=== PATIENT | female | born 1945 | race Caucasian/White ===

== ENCOUNTER → 2021-01-27 10:18 | Outpatient (BNVA) | payer MEDICARE, OTHER, SELFPAY | PROVIDERS: Family Provider Nurse Practitioner Family; PCP Nurse Practitioner Family; Visit Provider Nurse Practitioner Family | DX: R53.83 Other fatigue (principal); K21.9 Gastro-esophageal reflux disease without esophagitis; R53.82 Chronic fatigue, unspecified | CPT/HCPCS: 84443 ==

== ENCOUNTER → 2021-09-14 10:05 | Outpatient (BNVA) | payer MEDICARE, OTHER, SELFPAY | PROVIDERS: Family Provider Nurse Practitioner Family; PCP Nurse Practitioner Family; Visit Provider Nurse Practitioner Family | DX: Z00.00 Encounter for general adult medical examination without abnormal findings (principal); E78.5 Hyperlipidemia, unspecified | CPT/HCPCS: 80053; 80061; 85025 ==

== ENCOUNTER → 2021-12-16 09:48 | Outpatient (BNVA) | payer MEDICARE, OTHER, SELFPAY | PROVIDERS: Family Provider Nurse Practitioner Family; PCP Nurse Practitioner Family; Visit Provider Nurse Practitioner Family | DX: I10 Essential (primary) hypertension (principal); E78.5 Hyperlipidemia, unspecified; L81.9 Disorder of pigmentation, unspecified | CPT/HCPCS: 80048; 80061 ==

== ENCOUNTER 2023-03-18 12:07 | Emergency (ER) | payer MEDICARE, SELFPAY ==
[2023-03-18 12:10] VITALS: BP 156/55; PULSE 85; RESP 14; O2SAT 99
--- NOTE | 2023-03-18 12:29 | XRR_ITS ---
PROCEDURE INFORMATION: Exam: XR Chest Exam date and time: 03/18/2023 12:40 PM Age: 77 years old Clinical indication: Pain; Chest pressure; Additional info: Chest pain TECHNIQUE: Imaging protocol: Radiologic exam of the chest. Views: 1 view. COMPARISON: No relevant prior studies available. FINDINGS: Lungs: Unremarkable. No consolidation. Pleural spaces: Unremarkable. No pleural effusion. No pneumothorax. Heart/Mediastinum: Unremarkable. No cardiomegaly. Bones/joints: Unremarkable. XR/XR chest 1V portable [id number] IMPRESSION: No acute findings.
--- NOTE | 2023-03-18 12:29 | ECG_ITS ---
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 Measurements Intervals [place] Rate: 79 P: 64 TX: 162 QRS: 38 QRSD: 92 T: 52 QT: 366 QTc: 422 Interpretive Statements SINUS RHYTHM No previous ECG available for comparison Electronically Signed On 03-18-2023 13:09:59 CDT by Fern Milian M.D. [id number]
--- NOTE | 2023-03-18 12:30 | W.ED.CHESTPA ---
HPI - Chest Pain General: Chief Complaint: Chest Pain Stated Complaint: CHEST PAIN Time Seen by Provider: 03/18/23 12:10 Source: patient Mode of arrival: EMS History of Present Illness: 77-year-old female presents emergency room with complaint of chest pain. 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 Complains of pain, epigastric area radiating up into the stomach she did get diaphoretic and somewhat short of breath with that her most of her symptoms have resolved by the time she arrived here she was given aspirin 324 mg in route. She has no known history of coronary artery disease hypertension or hyperlipidemia. No previous cardiac evaluations no prior episodes of chest discomfort. Patient had nausea associated with this and a single episode of diarrhea. She is non-smoker nondrinker and no history of diabetes mellitus does have some mild hypertension for which she takes lisinopril MD complaint: chest pain Onset (ago): hour(s) Timing of current episode: episodic Prior episodes: No Onset: during rest Pain location: substernal Quality: tightness and aching Relieving factors: nothing Exacerbating factors: nothing Associated symptoms: Reports dyspnea; Deny abdominal pain, fever(s) or palpitations Review of Systems Const: Denies: fever(s) or chills Card: Reports: chest pain; Denies: palpitations, irregular heart rhythm or edema Resp: Reports: dyspnea GI: Denies: abdominal pain : Denies: dysuria, urinary frequency or urinary urgency Musc: Denies: neck pain or back pain Skin/Breast: Denies: rash PFSH ED PFSH: Medical History Hyperlipidemia Hypertension Family History Father CAD (coronary artery disease) Hypertension Mother Hyperlipidemia Denies family history of Diabetes Chronic kidney disease (CKD) Cancer Social History Smoking and tobacco/nicotine status: never used tobacco/nicotine Second hand smoke exposure: No Alcohol intake: never Substance/Drug Use: never Adopted: No Household members: spouse Housing: House Marital status: service: Yes branch: [place] branch details: [place] Physical Exam Const: COMMON NORMALS: no acute distress GENERAL APPEARANCE: cooperative and comfortable ORIENTATION/CONSCIOUSNESS: Yes awake, Yes oriented to person, Yes oriented to place and Yes oriented to time HENMT: COMMON NORMALS: normocephalic, atraumatic and hearing grossly normal bilaterally HEAD & SCALP: normocephalic and atraumatic Resp: COMMON NORMALS: normal respiratory effort, No retractions, No use of accessory muscles and clear to auscultation bilaterally AUSCULTATION: clear to auscultation bilaterally Cardio: COMMON NORMALS: regular rate, regular rhythm and No murmurs present (Cardio) RATE: regular rate RHYTHM: regular rhythm GI: COMMON NORMALS: Soft to palpation and No hepatosplenomegaly present AUSCULTATION: Yes normoactive bowel sounds PALPATION: Yes Soft to palpation, No Tenderness to palpation present (GI), No Guarding due to palpation present (GI) and Yes No hepatosplenomegaly present Extremity: COMMON NORMALS: normal to inspection, capillary refill normal, no clubbing, cyanosis or edema, no calf tenderness and no pedal edema Neuro: SENSORIUM/ORIENTATION: Yes oriented to person, Yes oriented to place and Yes oriented to time Skin: COMMON NORMALS: no rashes or lesions noted GENERAL SKIN EXAM: no rashes or lesions noted Course Vital Signs: Vital signs: Vital Signs Pulse Rate 85 03/18/23 12:10 Respiratory Rate 14 03/18/23 12:10 Blood Pressure 156/55 03/18/23 12:10 Pulse Oximetry 98 03/18/23 13:17 Oxygen Delivery Me thod Room Air 03/18/23 13:17 MDM - Chest Pain Medical Decision Making Cardiac enzymes EKG unremarkable. No further symptoms patient preferred to go home started on Isorbid mononitrate of lower blood pressure and protect her heart also start baby aspirin and set up for outpatient Lexiscan sestamibi stress test. Avoid exertional activities return if has further problems. Medical Records I reviewed the patient's medical records. Lab Data I reviewed the patient's lab results. 03/18/23 12:24 03/18/23 12:24 Radiology Impressions Chest X-Ray 03/18/23 12:29 IMPRESSION: No acute findings. Laboratory Results WBC 13.29 10^3/uL (3.29-11.43) H 03/18/23 12:24 RBC 5.00 10^6/uL (3.85-5.65) 03/18/23 12:24 Hgb 14.30 g/dL (11.27-16.99) 03/18/23 12:24 Hct 44.6 % (36-47) 03/18/23 12:24 MCV 89.2 fl (85-98) 03/18/23 12:24 MCH 28.6 pg (27-33) 03/18/23 12:24 MCHC 32.1 g/dL (30-55) 03/18/23 12:24 RDW 13.2 % (12.1-15.1) 03/18/23 12:24 Plt Count 343 10^3/cmm (157-399) 03/18/23 12:24 MPV 9.1 fL (7.4-10.4) 03/18/23 12:24 Neut % (Auto) 92.3 % 03/18/23 12:24 Lymph % (Auto) 3.8 % 03/18/23 12:24 Schuyler % (Auto) 2.9 % 03/18/23 12:24 Eos % (Auto) 0.4 % 03/18/23 12:24 Baso % (Auto) 0.2 % 03/18/23 12:24 Neut # (Auto) 12.27 10^3/uL (1.8-7.7) H 03/18/23 12:24 Lymph # (Auto) 0.5 10^3/uL (0.8-4.8) L 03/18/23 12:24 Schuyler # (Auto) 0.4 10^3/uL (0.2-0.9) 03/18/23 12:24 Eos # (Auto) 0.1 10^3/uL (0.0-0.8) 03/18/23 12:24 Baso # (Auto) 0.0 10^3/uL (0.0-0.1) 03/18/23 12:24 Nucleated RBC % (auto) 0 % 03/18/23 12:24 Nucleated RBCs # 0.0 /100WBC 03/18/23 12:24 Sodium 138 mmol/L (136-145) 03/18/23 12:24 Potassium 4.3 mmol/L (3.5-5.1) 03/18/23 12:24 Chloride 100 mmol/L (98-107) 03/18/23 12:24 Carbon Dioxide 27 mmol/L (22-29) 03/18/23 12:24 Anion Gap 15.3 (5-19) 03/18/23 12:24 BUN 15 mg/dL (8-23) 03/18/23 12:24 Creatinine 0.7 mg/dL (0.5-0.9) 03/18/23 12:24 GFR Calculation Not Reportable 03/18/23 12:24 Glucose 99 mg/dL (65-115) 03/18/23 12:24 Calculated Osmolality 287 mOsm/kg (285-295) 03/18/23 12:24 Calcium 9.5 mg/dL (8.5-10.5) 03/18/23 12:24 Total Bilirubin 0.7 mg/dL (0.15-1.2) 03/18/23 12:24 AST 27 U/L (0-32) 03/18/23 12:24 ALT 20 U/L (0-33) 03/18/23 12:24 Alkaline Phosphatase 66 U/L (35-105) 03/18/23 12:24 Troponin T Baseline 10 ng/L (0-10) 03/18/23 12:24 Troponin T 120 Minute 8.61 ng/L (0-10) 03/18/23 14:08 Delta Troponin T -1.39 ABS# (0-10) L 03/18/23 14:08 Total Protein 7.5 g/dL (6.6-8.7) 03/18/23 12:24 Albumin 4.5 g/dL (3.5-5.2) 03/18/23 12:24 Globulin 3.0 g/dL (1.3-4.6) 03/18/23 12:24 All radiology interpretation(s) finalized by discharge Discharge Plan Discharge Patient Disposition: Home Clinical Impression: Atypical chest pain, Hypertension Condition: Stable Prescriptions: New isosorbide mononitrate 30 mg tablet extended release 24 hr 30 mg PO DAILY Qty: 30 0RF aspirin 81 mg tablet,delayed release (DR/EC) 81 mg PO DAILY Qty: 30 0RF No Action omeprazole 40 mg capsule,delayed release(DR/EC) 40 mg PO DAILY Qty: 90 0RF doxycycline monohydrate 100 mg capsule 100 mg PO BID 10 Days Qty: 20 0RF lisinopril 5 mg tablet 5 mg PO DAILY Qty: 90 1RF Discharge Orders: Discharge ED (Routine); Ordered 03/18/23 Ordered By: Sebastian Akins Referrals: Guillermina Fregoso FNP [Primary Care Provider] - Discharge Diet: Usual diet Discharge Activity: Limit activity as instructed Patient Instructions: Opioid Safety, Pain Management Activity Restrictions/Additional Instructions: Thank you for choosing [facility] for your healthcare needs today. Please realize this is an emergency room and that we are providing you with a medical screening exam and this may not be complete and all inclusive of all the testing and or work up that you may need to determine your ailment or severity of your illness. It is very important that you follow up as instructed or that you return to the Emergency Department should you have concerns or if your condition changes or worsens in any way. You are seen today for atypical chest pain. Your blood pressure was mildly elevated as well your cardiac enzymes and EKG were normal. Recommend that you continue your lisinopril and add isosorbide mononitrate as well as an aspirin daily. Case management make arrangements for you to an outpatient Lexiscan sestamibi stress test to further evaluate your heart. Avoid any exertional activities. Coding Level of Care Code ED Alternative Energy Technician for Arcelia Sparks
[2023-03-18 12:56] LABS: Basophils % 0.2 %; Eosinophils # 0.1 10^3/uL (0.0-0.8); Eosinophils % 0.4 %; Hematocrit 44.6 % (36-47); Lymphocytes # 0.5 10^3/uL (0.8-4.8); Lymphocytes % 3.8 %; Mean Corpuscular HGB Conc 32.1 g/dL (30-55); Mean Corpuscular Hemoglobin 28.6 pg (27-33); Mean Corpuscular Volume 89.2 fl (85-98); Mean Platelet Volume 9.1 fL (7.4-10.4); Monocytes # 0.4 10^3/uL (0.2-0.9); Monocytes % 2.9 %; Neutrophils # 12.27 10^3/uL (1.8-7.7); Neutrophils % 92.3 %; Nucleated Red Blood Cells % 0 %; Platelet Count 343 10^3/cmm (157-399); Red Cell Distribution Width 13.2 % (12.1-15.1); White Blood Count 13.29 10^3/uL (3.29-11.43)
[2023-03-18 13:14] LABS: Alanine Aminotransferase 20 U/L (0-33); Albumin Level 4.5 g/dL (3.5-5.2); Alkaline Phosphatase 66 U/L (35-105); Anion Gap 15.3 (5-19); Aspartate Amino Transferase 27 U/L (0-32); Blood Urea Nitrogen 15 mg/dL (8-23); Calcium 9.5 mg/dL (8.5-10.5); Carbon Dioxide 27 mmol/L (22-29); Chloride 100 mmol/L (98-107); Creatinine Clr Calc Pharmacy 50.7413; Glucose 99 mg/dL (65-115); Osmolality Calculated 287 mOsm/kg (285-295); Potassium 4.3 mmol/L (3.5-5.1); Sodium 138 mmol/L (136-145); Total Bilirubin 0.7 mg/dL (0.15-1.2); Total Protein 7.5 g/dL (6.6-8.7)
[2023-03-18 13:15] LABS: Troponin(5th) Baseline 10 ng/L (0-10)
[2023-03-18 13:17] VITALS: O2SAT 98
--- NOTE | 2023-03-18 14:29 | ECG_ITS ---
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 Measurements Intervals [place] Rate: 79 P: 65 [place]: 172 QRS: 42 QRSD: 90 T: 54 QT: 366 QTc: 421 Interpretive Statements SINUS RHYTHM NONSPECIFIC T-WAVE ABNORMALITY Compared to ECG 03/18/2023 12:09:24 T-wave abnormality now present Electronically Signed On 03-18-2023 17:53:02 CDT by Fern Milian M.D. [id number]
[2023-03-18 15:38] LABS: Troponin 5 2HR 8.61 ng/L (0-10); Troponin 5 2HR Delta -1.39 ABS# (0-10)
--- NOTE | 2023-04-03 09:02 | DCPLANNER ---
Richard outpatient request sent to centralized scheduling
== END 2023-03-18 15:24 | disposition home or self-care (01) ==
PROVIDERS: Emergency Provider Family Medicine; PCP Nurse Practitioner Family
DX: R07.89 Other chest pain (principal); I10 Essential (primary) hypertension; E78.5 Hyperlipidemia, unspecified
CPT/HCPCS: 36415; 71045; 80053; 84484; 85025; 93005; 99285

== ENCOUNTER → 2023-03-21 11:02 | Outpatient (BNVA) | payer MEDICARE, SELFPAY | PROVIDERS: PCP Nurse Practitioner Family; Visit Provider Nurse Practitioner Family | DX: D72.829 Elevated white blood cell count, unspecified (principal); R01.1 Cardiac murmur, unspecified; R07.89 Other chest pain | CPT/HCPCS: 85025 ==

== ENCOUNTER → 2023-03-29 09:44 | Outpatient (BNVA) | payer MEDICARE, SELFPAY | PROVIDERS: PCP Nurse Practitioner Family; Visit Provider Nurse Practitioner Family | DX: E78.5 Hyperlipidemia, unspecified (principal); M81.0 Age-related osteoporosis without current pathological fracture; Z00.00 Encounter for general adult medical examination without abnormal findings | CPT/HCPCS: 80061 ==

== ENCOUNTER 2023-04-14 12:23 | Outpatient (CLI) | payer MEDICARE, SELFPAY ==
--- NOTE | 2023-04-14 13:30 | XR_ITS ---
WS: [id number] SCREENING DEXA SCAN [employer] CLINICAL INFORMATION: M81.0 - Age-related osteoporosis without current patholog... COMPARISON: None. FINDINGS: The L1-L4 bone mineral density measures 1.059 g/cm2. This corresponds to a T score score of -1.0 and Z score of 0.9. Left femoral neck bone mineral density measures 0.864 g/cm2. This corresponds to a T score of -1.1 an d Z score of 0.9. Right femoral neck bone mineral density measures 0.861 g/cm2. This corresponds to a T score -1.2of an d Z score of 0.9. Mean femoral neck bone mineral density measures 0.862 g/cm2. This corresponds to a T score of -1.2 an d Z score of 0.9. IMPRESSION: Osteopenia lumbar spine at the lower end of the range. Osteopenia femoral necks. Patient's FRAX calcu lated 10 year probability for major osteoporotic fracture is 15.6% and osteoporotic hip fracture is 4 .4%.
--- NOTE | 2023-04-14 13:44 | MM_ITS ---
WS: [id number] BILATERAL 3D TOMOSYNTHESIS DIGITAL SCREENING MAMMOGRAPHY WITH CAD CLINICAL INFORMATION: Z12.39 - Encounter for other screening for malignant neop... HISTORY: Screening mammogram. No current complaints. COMPARISON: 2014 TECHNIQUE: Bilateral CC and MLO views. FINDINGS: Scattered fibroglandular densities bilaterally. No suspicious focal mass, asymmetry, calcifications, or architectural distortion. No evidence of malignancy. Punctate and lucent centered calcifications. IMPRESSION: MM/[place] [id number] BI-RADS: 2-Benign FOLLOW UP: 1 Year Follow-up Recommend return to annual screening mammography.
== END 2023-04-14 12:24 | disposition home or self-care (01) ==
PROVIDERS: PCP Nurse Practitioner Family; Visit Provider Nurse Practitioner Family
DX: M81.0 Age-related osteoporosis without current pathological fracture; Z12.31 Encounter for screening mammogram for malignant neoplasm of breast
CPT/HCPCS: 77063; 77067; 77080

== ENCOUNTER → 2023-05-09 13:13 | Outpatient (BNVA) | payer MEDICARE, SELFPAY | PROVIDERS: PCP Nurse Practitioner Family; Referring Provider Nurse Practitioner Family; Visit Provider Internal Medicine | DX: I10 Essential (primary) hypertension (principal); E78.5 Hyperlipidemia, unspecified; I51.81 Takotsubo syndrome | CPT/HCPCS: 99204 ==

== ENCOUNTER 2023-07-04 13:09 | Outpatient (CLI) | payer MEDICARE, SELFPAY ==
--- NOTE | 2023-07-04 13:30 | USCV_ITS ---
Vivian Mims Age: 77 Gender: F : 1945 Exam Date: 07/04/2023 13:25 Ordering Phys: Yovany Monterroso M.D ([email or web address]) Technologist: Enriqueta Calixto Exam Location: [facility] Indication: Broken heart syndrome BP: 120 / 62 HR: 0 Rhythm: Sinus Technical Quality: Adequate MEASUREMENTS (Male / Female) Normal Values 2D ECHO LV Diastolic Diameter PLAX 4.6 cm 4.2 - 5.9 / 3.9 - 5.3 cm IVS Diastolic Thickness 0.8 cm 0.6 - 1.0 / 0.6 - 0.9 cm IVS Systolic Thickness 1.2 cm LVPW Diastolic Thickness 1.1 cm 0.6 - 1.0 / 0.6 - 0.9 cm LVPW Systolic Thickness 1.5 cm LVOT Diameter 2.0 cm LV Ejection Fraction 2D Teich 47.6 % LV Ejection Fraction MOD 2C 77.2 % Aorta at Sinotubular Diameter 2.4 cm IVC Diameter 1.3 cm M-MODE LA Ao Ratio MM 0.9 AV Cusp Separation MM 1.2 cm DOPPLER AV Area Cont Eq vti 2.9 cm squared AV Area Cont Eq pk 2.7 cm squared MV Area PHT 3.0 cm squared Mitral E to A Ratio 0.8 TR Peak Velocity 172.0 cm/s TR Peak Gradient 11.8 mmHg PV Peak Velocity 103.0 cm/s FINDINGS Left Ventricle Left ventricle is normal in size. LV systolic function is normal with EF of 60 to 65%. No regional wall motion abnormalities are seen. Grade 1 diastolic dysfunction Right Ventricle Normal in size and function Right Atrium Normal in size Left Atrium Normal in size Mitral Valve Structurally normal mitral valve. Mild mitral regurgitation Aortic Valve Aortic valve is thickened. Mild aortic regurgitation. No significant stenosis. Tricuspid Valve Mild tricuspid regurgitation. Insufficient TR jet to calculate RVSP Pulmonic Valve Mild pulmonic regurgitation Pericardium Normal Aorta Normal in size IVC Appears to be normal CONCLUSIONS LV systolic function is normal with EF of 60 to 65%. Grade 1 diastolic dysfunction. Mild mitral regurgitation Mild aortic regurgitation Mild tricuspid regurgitation Mild pulmonic regurgitation No comparison studies are available. Yovany Monterroso MD (Electronically Signed) Final Date: 08 July 2023 13:00 S
== END 2023-07-04 13:10 | disposition home or self-care (01) ==
PROVIDERS: PCP Nurse Practitioner Family; Visit Provider Internal Medicine
DX: R06.02 Shortness of breath (principal)
CPT/HCPCS: 93306

== ENCOUNTER → 2023-08-23 11:06 | Outpatient (BNVA) | payer MEDICARE, SELFPAY | PROVIDERS: PCP Nurse Practitioner Family; Visit Provider Nurse Practitioner Family | DX: I10 Essential (primary) hypertension (principal); E78.5 Hyperlipidemia, unspecified; M54.6 Pain in thoracic spine | CPT/HCPCS: 80053; 80061 ==

== ENCOUNTER → 2023-09-29 10:03 | Outpatient (BNVA) | payer MEDICARE, SELFPAY | PROVIDERS: PCP Nurse Practitioner Family; Visit Provider Nurse Practitioner Family | DX: D48.5 Neoplasm of uncertain behavior of skin (principal); L57.0 Actinic keratosis; L82.1 Other seborrheic keratosis; D22.62 Melanocytic nevi of left upper limb, including shoulder; H02.60 Xanthelasma of unspecified eye, unspecified eyelid; L85.3 Xerosis cutis; L81.4 Other melanin hyperpigmentation; L57.8 Other skin changes due to chronic exposure to nonionizing radiation; Z85.828 Personal history of other malignant neoplasm of skin | CPT/HCPCS: 11102; 17000; 99203 ==

== ENCOUNTER → 2023-10-23 13:34 | Outpatient (BNVA) | payer MEDICARE, SELFPAY | PROVIDERS: PCP Nurse Practitioner Family; Visit Provider Dermatology | DX: C44.01 Basal cell carcinoma of skin of lip (principal) | CPT/HCPCS: 14061; 17311 ==

== ENCOUNTER → 2023-11-01 10:27 | Outpatient (BNVA) | payer MEDICARE, SELFPAY | PROVIDERS: PCP Nurse Practitioner Family; Visit Provider Dermatology | DX: Z48.02 Encounter for removal of sutures (principal) | CPT/HCPCS: 99212 ==

== ENCOUNTER → 2023-11-17 09:30 | Outpatient (BNVA) | payer MEDICARE, SELFPAY | PROVIDERS: PCP Nurse Practitioner Family; Visit Provider Nurse Practitioner Family | DX: I10 Essential (primary) hypertension (principal); I51.81 Takotsubo syndrome | CPT/HCPCS: 99214 ==

== ENCOUNTER → 2024-02-29 13:05 | Outpatient (BNVA) | payer MEDICARE, SELFPAY | PROVIDERS: PCP Nurse Practitioner Family; Visit Provider Nurse Practitioner Family | DX: L57.0 Actinic keratosis (principal); L85.3 Xerosis cutis; H02.60 Xanthelasma of unspecified eye, unspecified eyelid; L81.4 Other melanin hyperpigmentation; Z85.828 Personal history of other malignant neoplasm of skin | CPT/HCPCS: 17000; 99213 ==

== ENCOUNTER → 2024-05-23 11:57 | Outpatient (BNVA) | payer MEDICARE, SELFPAY | PROVIDERS: PCP Nurse Practitioner Family; Visit Provider Nurse Practitioner Family | DX: L82.1 Other seborrheic keratosis (principal); L85.3 Xerosis cutis; Z08 Encounter for follow-up examination after completed treatment for malignant neoplasm; Z85.828 Personal history of other malignant neoplasm of skin; L57.0 Actinic keratosis | CPT/HCPCS: 17000; 99213 ==

== ENCOUNTER → 2024-06-19 09:46 | Outpatient (BNVA) | payer MEDICARE, SELFPAY | PROVIDERS: PCP Nurse Practitioner Family; Visit Provider Nurse Practitioner Family | DX: I10 Essential (primary) hypertension (principal); R53.83 Other fatigue | CPT/HCPCS: 80053; 80061; 84443; 85025 ==

== ENCOUNTER → 2024-07-05 09:28 | Outpatient (BNVA) | payer MEDICARE, SELFPAY | PROVIDERS: PCP Nurse Practitioner Family; Visit Provider Nurse Practitioner Family | DX: F41.9 Anxiety disorder, unspecified (principal) | CPT/HCPCS: 84439; 84443 ==

== ENCOUNTER 2024-07-10 10:03 | Outpatient (CLI) | payer MEDICARE, SELFPAY ==
--- NOTE | 2024-07-10 10:15 | US_ITS ---
WS: [id number] THYROID ULTRASOUND HISTORY: R79.89 - Other specified abnormal findings of blood chemi... COMPARISON: None available. Right lobe: 1.0 cm x 1.2 cm x 3.6 cm (w x ap x l). Volume: 2.1 cm3. Normal size and echotexture. No significant are dominant nodules are present. Left lobe: 3.0 cm x 0.8 cm x 1.1 cm (w x ap x l). Volume: 1.3 cm3. Normal size and echotexture. No significant or dominant nodules are present. Benign colloid cyst inferior pole measures 0.3 x 0.5 x 0.3 cm. Isthmus: 0.3 cm. US/US thyroid [id number] IMPRESSION: 1. No suspicious thyroid nodules. No FNA recommended. 2. Benign colloid cyst lower pole LEFT thyroid.
== END 2024-07-10 10:04 | disposition home or self-care (01) ==
LOC: RAD 10:05
PROVIDERS: PCP Nurse Practitioner Family; Visit Provider Nurse Practitioner Family
DX: R79.89 Other specified abnormal findings of blood chemistry (principal); E04.1 Nontoxic single thyroid nodule; I10 Essential (primary) hypertension; E78.2 Mixed hyperlipidemia; I51.81 Takotsubo syndrome
CPT/HCPCS: 76536; 99214

== ENCOUNTER → 2024-11-21 10:40 | Outpatient (BNVA) | payer MEDICARE, SELFPAY | PROVIDERS: PCP Nurse Practitioner Family; Visit Provider Nurse Practitioner Family | DX: L81.4 Other melanin hyperpigmentation (principal); L57.8 Other skin changes due to chronic exposure to nonionizing radiation; X32.XXXA Exposure to sunlight, initial encounter; L82.1 Other seborrheic keratosis; Z08 Encounter for follow-up examination after completed treatment for malignant neoplasm; Z85.828 Personal history of other malignant neoplasm of skin; L57.0 Actinic keratosis | CPT/HCPCS: 17000; 99213 ==